=== PATIENT | female | born 1995 | race Caucasian/White ===

== ENCOUNTER 2018-09-03 09:51 | Emergency (ER) | payer MEDICAID, OTHER ==
[~2018-09-03] VITALS: Ht 167.6 cm; Wt 63.5 kg
[2018-09-03 10:29] VITALS: BP 138/75
[2018-09-03 10:39] LABS: Basophils # (auto) 0 uL; Basophils % (auto) 0.7 % (0.0-2.0); Eosinophils # (auto) 0.1 uL; Eosinophils % (auto) 1.5 % (0.0-7.0); Hematocrit 43.2 % (36.0-46.0); Hemoglobin 14.9 g/dL (12.2-16.2); Lymphocytes # (auto) 1.2 uL; Lymphocytes % (auto) 20.6 % (10.0-50.0); Mean Corpuscular Hemoglobin 30.3 pg (28.0-32.0); Mean Corpuscular Hgb Conc. 34.4 g/dL (32.0-36.0); Mean Corpuscular Volume 88.1 fL (80.0-100.0); Monocytes # (auto) 0.6 uL; Neutrophils % (auto) 67.2 % (37.0-80.0); Nucleated Red Blood Cells % 0.1 %; Platelet Count (auto) 177 10^3/uL (140-450); Red Blood Cells 4.91 10^6/uL (4.0-5.20)
[2018-09-03] MEDS ORDERED: SODIUM CHLORIDE 0.9% 1,000 ML IV ONE ×2 (10:45→11:45)
[2018-09-03] MEDS ORDERED: cefTRIAXone 1GM/50ML D5W 50 ML IV ONE ×2 (10:45)
[2018-09-03] MEDS ORDERED: ONDANSETRON HCL 4 MG/2 ML VIAL IV ONE (10:45)
[2018-09-03 10:50] LABS: Anion Gap 4 (5-15); Blood Urea Nitrogen 10 mg/dL (7-18); Calcium 8.8 mg/dL (8.5-10.1); Carbon Dioxide 26 mmol/L (21-32); Chloride 106 mmol/L (98-107); Glucose 90 mg/dL (74-106); Potassium 3.5 mmol/L (3.5-5.1); Sodium 136 mmol/L (136-145)
[2018-09-03 10:55] LABS: Alanine Aminotransferase 32 U/L (13-56); Alkaline Phosphatase 54 U/L (45-117); Aspartate Aminotransferase 20 U/L (15-37); BUN/Creatinine Ratio 14.7; Bilirubin, Total 0.7 mg/dL (0.2-1.0); GFR African American > 60 mL/min; GFR Non-African American > 60 mL/min; Total Protein 7.8 g/dL (6.4-8.2)
[2018-09-03 11:45] LABS: Urine Bacteria FEW /hpf (None Seen); Urine Blood Negative /uL (Negative); Urine Mucus FEW (None Seen); Urine Specific Gravity 1.024 (1.001-1.035); Urine WBC 137 /hpf (0 - 5)
== END 2018-09-03 13:29 | disposition home or self-care (01) ==
LOC: ER 09:51
DX: O21.8 Other vomiting complicating pregnancy (principal); O23.41 Unspecified infection of urinary tract in pregnancy, first trimester; Z3A.01 Less than 8 weeks gestation of pregnancy
CPT/HCPCS: 36415; 76801; 80053; 81001; 84702; 85025; 96361; 96365; 96375; 99284; J0696; J2405; J7030

== ENCOUNTER 2022-01-31 05:00 | Emergency (ER) | payer MEDICAID ==
[~2022-01-31] VITALS: Ht 167.6 cm; Wt 65.8 kg
[2022-01-31 09:34] VITALS: BP 114/78
[2022-01-31] MEDS ORDERED: ACET-1158 PO (09:40)
[2022-01-31] MEDS ORDERED: CYCL-837 PO (09:40)
[2022-01-31] MEDS ORDERED: IBUPROFEN 800 MG TAB PO ONE (09:45)
== END 2022-01-31 09:47 | disposition home or self-care (01) ==
LOC: ER 05:00
DX: S16.1XXA Strain of muscle, fascia and tendon at neck level, initial encounter (principal); S20.211A Contusion of right front wall of thorax, initial encounter; S30.1XXA Contusion of abdominal wall, initial encounter; V43.62XA Car passenger injured in collision with other type car in traffic accident, initial encounter; Y93.89 Activity, other specified; Y92.488 Other paved roadways as the place of occurrence of the external cause; Y99.8 Other external cause status
CPT/HCPCS: 70450; 71250; 72125; 74176